=== PATIENT | male | born 1980 | race Hispanic/Latino ===

== ENCOUNTER 2018-05-07 17:31 | Emergency (ER) | payer BC ==
[2018-05-07 17:39] VITALS: BMI 25.1
[2018-05-07 17:40] VITALS: BP 133/87; PULSE 52; RESP 16; TEMP 98; O2SAT 100
--- NOTE | 2018-05-07 18:13 | ED PDOC ---
HPI: CCC, URI, Sore Throat Time Seen by Provider: 05/07/18 18:01 Chief Complaint (Nursing): ENT Problem Chief Complaint (Provider): NASAL DISCHARGE History Per: Patient (38 Y/O MALE HERE WITH FOR EVALUATION OF NASAL DISCHARGE SLIGHT ORANGE DISCOLORATION X 2 DAYS. PATIENT NOTES MILD HEAD INJURY 3 DAYS AGO WHEN CHILD KNEE HIT HIM IN HEAD. NO LOC. PATIENT STATES HE HAS NO HEADACHE/ NECK PAIN AFTER INJURY. PATIENT HAS NO H/O SINUS INFECTION. PATIENT STATES HE HAS APPT WITH ENT ON THURSDAY. CONCERNED FOR POSSIBLE CSF LEAK (READ ON INTERNET) AND SENT PATIENT TO ED FOR EVALUATION.) Past Medical History Reviewed: Historical Data, Nursing Documentation, Vital Signs Vital Signs: Last Vital Signs Temp 98.0 F 05/07/18 17:39 Pulse 52 L 05/07/18 17:39 Resp 16 05/07/18 17:39 BP 133/87 05/07/18 17:39 Pulse Ox 100 05/07/18 17:39 - Family History Family History: States: No Known Family Hx - Allergies Allergies/Adverse Reactions: Allergies Allergy/AdvReac Type Severity Reaction Status Date / Time No Known Allergies Allergy Verified 05/07/18 17:38 Review of Systems ROS Statement: Except As Marked, All Systems Reviewed And Found Negative Physical Exam - Reviewed Nursing Documentation Reviewed: Yes Vital Signs Reviewed: Yes - Physical Exam Appears: Positive for: Well, Non-toxic, No Acute Distress Head Exam: Positive for: ATRAUMATIC, NORMAL INSPECTION, NORMOCEPHALIC Skin: Positive for: Normal Color, Warm, DRY Eye Exam: Positive for: EOMI, Normal appearance, PERRL ENT: Positive for: Normal ENT Inspection Neck: Positive for: Normal, Painless ROM Cardiovascular/Chest: Positive for: Regular Rate, Rhythm Respiratory: Positive for: CNT, Normal Breath Sounds Gastrointestinal/Abdominal: Positive for: Normal Exam, Soft Back: Positive for: Normal Inspection Extremity: Positive for: Normal ROM Neurologic/Psych: Positive for: Alert, Oriented - ECG O2 Sat by Pulse Oximetry: 100 Medical Decision Making Medical Decision Making: PATIENT WELL IN ED WITH NO SIGNS OF BASILAR SKULL FRACTURE OR ACUTE BACTERIAL SINUS INFECTION. D/W HIM IF HE IS CONCERNED WITH REGARDS TO HEAD TRAUMA CT OF HEAD/SINUS FOR EVALUATION BUT NO CLINICAL SIGNS OF FRACTURE ARE NOTED. PATIENT WOULD LIKE TO BE EVALUATED BY ENT ON THURSDAY. Disposition - Clinical Impression Clinical Impression: Nasal discharge - Patient ED Disposition Is Patient to be Admitted: No - Disposition Referrals: Edil Mcarthur MD [Staff Provider] - Disposition: Routine/Home Disposition Time: 18:15 Condition: FAIR Instructions: Sinusitis, Adult (DC)
== END 2018-05-07 18:20 | disposition home or self-care (01) ==
LOC: H.ER 17:31
DX: R09.89 Other specified symptoms and signs involving the circulatory and respiratory systems (principal); S09.90XA Unspecified injury of head, initial encounter